=== PATIENT | male | born 1985 | race Caucasian/White ===

== ENCOUNTER 2020-09-02 22:02 | Emergency (ER) | payer OTHER ==
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
== END 2020-09-02 22:45 | disposition home or self-care (01) ==
LOC: JD.ED 22:02
DX: S39.012A Strain of muscle, fascia and tendon of lower back, initial encounter (principal); S16.1XXA Strain of muscle, fascia and tendon at neck level, initial encounter; V48.5XXA Car driver injured in noncollision transport accident in traffic accident, initial encounter; Y92.411 Interstate highway as the place of occurrence of the external cause
CPT/HCPCS: 99284

== ENCOUNTER 2021-11-07 07:22 | Emergency (ER) | payer BC, OTHER | END 2021-11-07 08:42 | disposition home or self-care (01) | LOC: JD.ED 07:22 | DX: R10.30 Lower abdominal pain, unspecified (principal); Z86.16 Personal history of COVID-19 | CPT/HCPCS: 74019; 74019-26; 99284; 99284-25 ==

== ENCOUNTER 2022-02-28 00:43 | Emergency (ER) | payer BC | END 2022-02-28 02:34 | disposition home or self-care (01) | LOC: JD.ED 00:43 | DX: K42.9 Umbilical hernia without obstruction or gangrene (principal); R11.2 Nausea with vomiting, unspecified; Z88.2 Allergy status to sulfonamides | CPT/HCPCS: 36415; 74018; 74018-26; 80053; 83690; 83735; 85007; 85027; 99284; 99284-25 ==

== ENCOUNTER 2022-08-29 02:20 | Day surgery (SDC) | payer BC ==
[2022-08-29] MEDS ORDERED: Ondansetron 4 MG/2 ML SDV IVPUSH ONE ×3 (02:31→07:38)
[2022-08-29] MEDS ORDERED: fentaNYL 100 MCG/2 ML SDV IVPUSH ONE ×2 (02:31→03:40)
[2022-08-29] MEDS ORDERED: Sodium Chloride 0.9% 1,000 ML IV SCH (03:00)
[2022-08-29] MEDS ORDERED: Alum Hydrox/Mag Hydrox/Simeth 30 ML, Lidocaine 2% 15 ML PO ONE ×2 (03:29)
[2022-08-29] MEDS ORDERED: HYDROmorphone 1 MG/ML Syringe IVPUSH ONE (05:04)
[2022-08-29] MEDS ORDERED: Lactated Ringers 1,000 ML IV ONE (06:21)
[2022-08-29] MEDS ORDERED: Sodium Chloride 0.9% 10 ML Syringe FLUSH PRN (07:12)
[2022-08-29] MEDS ORDERED: Iopamidol 612 MG/ML 100 ML Bottle IVPUSH ONE (07:12)
[2022-08-29] MEDS ORDERED: Lidocaine 1% with EPINEPHrine 1:100,000 10 ML MDV ONE (08:15)
[2022-08-29] MEDS ORDERED: Bupivacaine 0.5%/EPINEPHrine 1:200,000 50 ML MDV ONE (08:15)
[2022-08-29] MEDS ORDERED: Propofol 200 MG/20 ML SDV ONE (08:16)
[2022-08-29] MEDS ORDERED: Midazolam 1 MG/ML 2 ML SDV ONE (08:16)
[2022-08-29] MEDS ORDERED: Rocuronium 50 MG/5 ML Vial ONE (08:16)
[2022-08-29] MEDS ORDERED: Ondansetron 4 MG/2 ML SDV ONE (08:16)
[2022-08-29] MEDS ORDERED: fentaNYL 100 MCG/2 ML SDV ONE ×2 (08:17→09:51)
[2022-08-29] MEDS ORDERED: Lidocaine 1% 5 ML VIAL ONE (08:17)
[2022-08-29] MEDS ORDERED: ceFAZolin 2 GM in Sodium Chloride 0.9% 50 ML IV ONE (08:30)
[2022-08-29] MEDS ORDERED: Succinylcholine 200 MG/10 ML MDV ONE (08:42)
[2022-08-29] MEDS ORDERED: Dexamethasone 4 MG/ML 5 ML MDV ONE (08:51)
[2022-08-29] MEDS ORDERED: Lactated Ringers 1,000 ML ONE ×2 (08:51→09:41)
[2022-08-29] MEDS ORDERED: ceFAZolin 2 GM Vial ONE (08:52)
[2022-08-29] MEDS ORDERED: Ketamine 500 mg/10 ML MDV ONE (08:58)
[2022-08-29] MEDS ORDERED: HYDROmorphone 0.5 MG/0.5 ML Syringe ONE (09:11)
[2022-08-29] MEDS ORDERED: Neostigmine Methylsulfate 10 MG/10 ML MDV ONE (09:18)
[2022-08-29] MEDS ORDERED: Metoclopramide 10 MG/2 ML SDV ONE (09:24)
[2022-08-29] MEDS ORDERED: HYDROmorphone 0.5 MG/0.5 ML Syringe IVPUSH PRN (10:00)
[2022-08-29] MEDS ORDERED: Ondansetron 4 MG/2 ML SDV IVPUSH PRN (10:00)
[2022-08-29] MEDS ORDERED: fentaNYL 100 MCG/2 ML SDV IVPUSH PRN (10:00)
[2022-08-29] MEDS ORDERED: Ketorolac 30 MG/ML SDV ONE (10:12)
== END 2022-08-29 12:25 | disposition home or self-care (01) ==
LOC: JD.ED 02:20 → JD.SDS 08:09
PROVIDERS: ATTEND Surgery
DX: K80.10 Calculus of gallbladder with chronic cholecystitis without obstruction (principal); K42.9 Umbilical hernia without obstruction or gangrene; Z88.2 Allergy status to sulfonamides; Z79.899 Other long term (current) drug therapy; Z90.49 Acquired absence of other specified parts of digestive tract
CPT/HCPCS: 36415; 47562; 74177; 80053; 83690; 84484; 85025; 93005; 96361; 96374; 96375; 96376; 99285; A9270; J0330; J0690; J1100; J1170; J1885; J2250; J2405; J2704; J2710; J2765; J3010; J3490; J7030; J7120; Q9967; 00790; 99140

== ENCOUNTER 2022-11-02 21:01 | Emergency (ER) | payer BC ==
[2022-11-02] MEDS ORDERED: Sodium Chloride 0.9% 1,000 ML IV ONE (21:17)
[2022-11-02] MEDS ORDERED: Tamsulosin 0.4 MG Cap.ER PO ONE (22:28)
== END 2022-11-02 22:43 | disposition home or self-care (01) ==
LOC: JD.ED 21:01
DX: N20.0 Calculus of kidney (principal); Z88.2 Allergy status to sulfonamides; Z79.899 Other long term (current) drug therapy
CPT/HCPCS: 36415; 74176; 80053; 81003; 85025; 96360; 99284; A9270; J7030

== ENCOUNTER 2025-06-01 10:27 | Emergency (ER) | payer BC | END 2025-06-01 12:30 | disposition home or self-care (01) | LOC: JD.ED 10:27 | DX: S29.012A Strain of muscle and tendon of back wall of thorax, initial encounter (principal); S49.91XA Unspecified injury of right shoulder and upper arm, initial encounter; Z79.899 Other long term (current) drug therapy; Z88.2 Allergy status to sulfonamides; X58.XXXA Exposure to other specified factors, initial encounter | CPT/HCPCS: 73030-26-RT; 73030-RT; 99283; 99284 ==